=== PATIENT | female | born 1980 | race Caucasian/White ===

== ENCOUNTER 2017-09-06 16:04 | Emergency (ER) | payer BC ==
--- NOTE | 2017-09-06 16:42 | EDM.PDOC ---
ED HPI GENERAL MEDICAL PROBLEM - General Chief Complaint: Abdominal Pain Stated Complaint: LOWER LT ABDOMINAL PAIN Time Seen by Provider: 09/06/17 16:41 - History of Present Illness INITIAL COMMENTS - FREE TEXT/NARRATIVE: 37-year-old female presents emergency room with abdominal pain. This pain started yesterday in the left lower quadrant and has remained in the left lower quadrant pain has progressively gotten worse last night it wasn't too bad today it is much worse exquisitely tender. She thought she may be getting constipated tried mag citrate she had a large BM this did not improve the pain. Her past abdominal surgical history significant only for laparoscopic cholecystectomy. She really has not had any fevers no nausea or vomiting. Treatments COLLEGE TUTOR: Reports: Other (see below) Other Treatments COLLEGE TUTOR: mag citrate Left Lower Abdomen Pain Score (Numeric/FACES): 8 - Related Data Allergies Allergy/AdvReac Type Severity Reaction Status Date / Time No Known Allergies Allergy Verified 09/06/17 16:34 Home Meds: Home Meds Ciprofloxacin HCl [Cipro] 500 mg PO Q12H #14 tablet 09/06/17 [Rx] DULoxetine HCl [Cymbalta] 90 mg PO DAILY 09/06/17 [History] buPROPion HCl [Wellbutrin Xl] 0 mg PO DAILY 09/06/17 [History] metroNIDAZOLE [Flagyl] 500 mg PO Q8H #21 tab 09/06/17 [Rx] Past Medical History Psychiatric History: Reports: Anxiety, Depression - Past Surgical History GI Surgical History: Reports: Cholecystectomy Social & Family History - Tobacco Use Smoking Status *Q: Never Smoker - Caffeine Use Caffeine Use: Reports: Coffee, Tea - Recreational Drug Use Recreational Drug Use: No ED ROS GENERAL - Review of Systems Review Of Systems: See Below Constitutional: Reports: No Symptoms HEENT: Reports: No Symptoms Respiratory: Reports: No Symptoms Cardiovascular: Reports: No Symptoms, Palpitations GI/Abdominal: Reports: Abdominal Pain, Constipation. Denies: Diarrhea, Nausea, Vomiting : Reports: No Symptoms Musculoskeletal: Reports: No Symptoms Skin: Reports: No Symptoms Neurological: Reports: No Symptoms ED EXAM, GI/ABD - Physical Exam Exam: See Below Exam Limited By: No Limitations General Appearance: Alert, No Apparent Distress Head: Atraumatic, Normocephalic Neck: Normal Inspection, Supple, Non-Tender, Full Range of Motion Respiratory/Chest: No Respiratory Distress, Lungs Clear, Normal Breath Sounds Cardiovascular: Regular Rate, Rhythm, No Edema, No Murmur GI/Abdominal Exam: Normal Bowel Sounds, Soft, Other (Patient is significant left lower quadrant discomfort with palpation little higher than I would expect for ovarian pain no rigidity rebound or guarding noted) Back Exam: Normal Inspection. No: CVA Tenderness (L), CVA Tenderness (R) Extremities: Normal Inspection, No Pedal Edema Neurological: Alert, Oriented, Normal Cognition Psychiatric: Normal Affect, Normal Mood Skin Exam: Warm, Dry, Intact Lymphatic: No Adenopathy Course - Vital Signs Last Recorded V/S: Last Vital Signs Temp 36.7 C 09/06/17 16:29 Pulse 104 H 09/06/17 16:29 Resp 20 09/06/17 16:29 BP 133/77 09/06/17 16:29 Pulse Ox 100 09/06/17 16:29 - Orders/Labs/Meds Orders: Active Orders 24 hr Category Date Time Status Abdomen 2V AP Flat Upright [CR] Stat Exams 09/06/17 17:04 Taken Abdomen Pelvis w Cont [CT] Stat Exams 09/06/17 18:49 Taken Lactated Ringers [Ringers, Lactated] 1,000 ml Med 09/06/17 17:15 Active IV ASDIRECTED Medication Orders Lactated Ringer's (Ringers, Lactated) 1,000 mls @ 150 mls/hr IV ASDIRECTED ADRY Last Admin: 09/06/17 19:07 Dose: 150 mls/hr Labs: Laboratory Tests 09/06/17 09/06/17 09/06/17 Range/Units 17:01 17:17 17:32 WBC 13.54 H (3.98-10.04) K/mm3 RBC 3.90 L (3.98-5.22) M/mm3 Hgb 12.2 (11.2-15.7) gm/L Hct 37.1 (34.1-44.9) % MCV 95.1 H (79.4-94.8) fl MCH 31.3 (25.6-32.2) pg MCHC 32.9 (32.2-35.5) g/dl RDW Std Deviation 44.8 (36.4-46.3) fL Plt Count 196 (182-369) K/mm3 MPV 10.6 (9.4-12.3) fl Neutrophils % (Manual) 82 H (40-60) % Band Neutrophils % 0 (0-10) % Lymphocytes % (Manual) 18 L (20-40) % Atypical Lymphs % 0 % Monocytes % (Manual) 0 L (2-10) % Eosinophils % (Manual) 0 L (0.7-5.8) % Basophils % (Manual) 0 L (0.1-1.2) Platelet Estimate Adequate RBC Morph Comment Normal Sodium 139 (136-145) mEq/L Potassium 3.5 (3.5-5.1) mEq/L Chloride 104 (98-107) mEq/L Carbon Dioxide 26 (21-32) mEq/L Anion Gap 12.5 (5-15) BUN 12 (7-18) mg/dL Creatinine 0.7 (0.55-1.02) mg/dL Est Cr Clr Drug Dosing 108.85 mL/min Estimated GFR (MDRD) > 60 (>60) mL/min BUN/Creatinine Ratio 17.1 (14-18) Glucose 107 H (74-106) mg/dL Calcium 8.6 (8.5-10.1) mg/dL Total Bilirubin 0.8 (0.2-1.0) mg/dL AST 9 L (15-37) U/L ALT 20 (14-59) U/L Alkaline Phosphatase 58 (46-116) U/L Total Protein 7.4 (6.4-8.2) g/dl Albumin 3.6 (3.4-5.0) g/dl Globulin 3.8 gm/dL Albumin/Globulin Ratio 1.0 (1-2) Urine Color (Yellow) Urine Appearance (Clear) Urine pH (5.0-8.0) Ur Specific [place] (1.005-1.030) Urine Protein (Negative) Urine Glucose (UA) (Negative) Urine Ketones (Negative) Urine Occult Blood (Negative) Urine Nitrite (Negative) Urine Bilirubin (Negative) Urine Urobilinogen (0.2-1.0) Ur Leukocyte Esterase (Negative) Urine RBC (0-5) /hpf Urine WBC (0-5) /hpf Ur Epithelial Cells (0-5) /hpf Urine Bacteria (FEW) /hpf Urine Mucus (FEW) /hpf Urine HCG, Qual Negative (NEGATIVE) 09/06/17 Range/Units 17:32 WBC (3.98-10.04) K/mm3 RBC (3.98-5.22) M/mm3 Hgb (11.2-15.7) gm/L Hct (34.1-44.9) % MCV (79.4-94.8) fl MCH (25.6-32.2) pg MCHC (32.2-35.5) g/dl RDW Std Deviation (36.4-46.3) fL Plt Count (182-369) K/mm3 MPV (9.4-12.3) fl Neutrophils % (Manual) (40-60) % Band Neutrophils % (0-10) % Lymphocytes % (Manual) (20-40) % Atypical Lymphs % % Monocytes % (Manual) (2-10) % Eosinophils % (Manual) (0.7-5.8) % Basophils % (Manual) (0.1-1.2) Platelet Estimate RBC Morph Comment Sodium (136-145) mEq/L Potassium (3.5-5.1) mEq/L Chloride (98-107) mEq/L Carbon Dioxide (21-32) mEq/L Anion Gap (5-15) BUN (7-18) mg/dL Creatinine (0.55-1.02) mg/dL Est Cr Clr Drug Dosing mL/min Estimated GFR (MDRD) (>60) mL/min BUN/Creatinine Ratio (14-18) Glucose (74-106) mg/dL Calcium (8.5-10.1) mg/dL Total Bilirubin (0.2-1.0) mg/dL AST (15-37) U/L ALT (14-59) U/L Alkaline Phosphatase (46-116) U/L Total Protein (6.4-8.2) g/dl Albumin (3.4-5.0) g/dl Globulin gm/dL Albumin/Globulin Ratio (1-2) Urine Color Yellow (Yellow) Urine Appearance Clear (Clear) Urine pH 7.5 (5.0-8.0) Ur Specific [place] 1.020 (1.005-1.030) Urine Protein Negative (Negative) Urine Glucose (UA) Negative (Negative) Urine Ketones Negative (Negative) Urine Occult Blood Negative (Negative) Urine Nitrite Negative (Negative) Urine Bilirubin Negative (Negative) Urine Urobilinogen 0.2 (0.2-1.0) Ur Leukocyte Esterase Negative (Negative) Urine RBC Not seen (0-5) /hpf Urine WBC 0-5 (0-5) /hpf Ur Epithelial Cells 0-5 (0-5) /hpf Urine Bacteria Not seen (FEW) /hpf Urine Mucus Not seen (FEW) /hpf Urine HCG, Qual (NEGATIVE) Meds: Medications Generic Name Dose Route Start Last Admin Trade Name Freq PRN Reason Stop Dose Admin Lactated Ringer's 1,000 mls @ 150 mls/hr 09/06/17 17:15 09/06/17 19:07 Ringers, Lactated IV 150 mls/hr ASDIRECTED ADRY Administration Discontinued Medications Generic Name Dose Route Start Last Admin Trade Name Freq PRN Reason Stop Dose Admin Diatrizoate Meglum/Diatrizoate Sod 90 ml 09/06/17 20:08 Gastrografin 37% PO 09/06/17 20:09 ONETIME ONE Fentanyl 50 mcg 09/06/17 17:02 09/06/17 17:16 Sublimaze IVPUSH 09/06/17 17:03 50 mcg ONETIME ONE Administration Hydromorphone HCl 0.5 mg 09/06/17 18:53 09/06/17 19:01 Dilaudid IVPUSH 09/06/17 18:54 0.5 mg ONETIME ONE Administration Lactated Ringer's 1,000 mls @ 999 mls/hr 09/06/17 17:02 09/06/17 17:33 Ringers, Lactated IV 09/06/17 18:02 999 mls/hr .BOLUS ONE Administration Iopamidol 125 ml 09/06/17 20:08 09/06/17 20:31 Isovue-300 (61%) IVPUSH 09/06/17 20:09 125 ml ONETIME ONE Administration Levofloxacin 500 mg 09/06/17 21:13 Levaquin PO 09/06/17 21:14 ONETIME ONE Metronidazole 500 mg 09/06/17 21:13 Flagyl PO 09/06/17 21:14 ONETIME ONE Sodium Chloride 10 ml 09/06/17 20:08 09/06/17 20:31 Saline Flush FLUSH 09/06/17 20:09 10 ml ONETIME ONE Administration - Re-Assessments/Exams Free Text/Narrative Re-Assessment/Exam: 09/06/17 20:35 Labs were basically unrevealing her abdominal pain has persisted. Discussed the pros and cons of further imaging with the patient in given the possibility of diverticulitis though prior history we decided to go ahead and check a CT with IV and oral contrast. Plain films were checked which were basically unrevealing. 09/06/17 21:20 CT confirms a diverticulitis just proximal to the sigmoid colon. Patient will be given a dose of Flagyl 500 mg by mouth and Levaquin 500 mg by mouth now she' ll start Cipro and Flagyl in the morning from prescriptions that she'll get at the pharmacy she is given 20 [place] from the machine in the waiting room. Departure - Departure Time of Disposition: 21:21 Disposition: Home, Self-Care 01 Clinical Impression: Diverticulitis - Discharge Information Prescriptions: Ciprofloxacin HCl [Cipro] 500 mg PO Q12H #14 tablet metroNIDAZOLE [Flagyl] 500 mg PO Q8H #21 tab Referrals: Candice Alatorre, [employer]IC [Primary Care Provider] - Forms: ED Department Discharge Additional Instructions: Return to emergency room with any questions problems worsening symptoms. You have been given your first dose of oral antibiotics here in the emergency room starting tomorrow morning he'll take Cipro 500 mg twice daily and Flagyl 500 mg every 8 hours 3 times daily. While taking the antibiotics decrease your Cymbalta to every other evening From the machine in the waiting room your given pain medication, this is [place], or hydrocodone. Take one or 2 every 6 hours as needed for discomfort. If using this medication on a regular basis it can cause constipation so take a good stool softener with it. Follow-up with your regular physician in 3 or 4 days. - My Orders Last 24 Hours: My Active Orders 09/06/17 17:04 Abdomen 2V AP Flat Upright [CR] Stat 09/06/17 17:15 Lactated Ringers [Ringers, Lactated] 1,000 ml IV ASDIRECTED 09/06/17 18:49 Abdomen Pelvis w Cont [CT] Stat - Assessment/Plan Last 24 Hours: My Active Orders 09/06/17 17:04 Abdomen 2V AP Flat Upright [CR] Stat 09/06/17 17:15 Lactated Ringers [Ringers, Lactated] 1,000 ml IV ASDIRECTED 03/11/18 18:49 Abdomen Pelvis w Cont [CT] Stat
[2017-09-06] MEDS ORDERED: Lactated Ringers 1,000 ML IV ONE (17:02)
[2017-09-06] MEDS ORDERED: fentaNYL 100 MCG/2 ML SDV IVPUSH ONE (17:02)
[2017-09-06] MEDS ORDERED: Lactated Ringers 1,000 ML IV SCH (17:15)
[2017-09-06] MEDS ORDERED: HYDROmorphone 0.5 MG/0.5 ML SYRINGE IVPUSH ONE (18:53)
[2017-09-06] MEDS ORDERED: Iopamidol 612 MG/ML 150 ML Bottle IVPUSH ONE (20:08)
[2017-09-06] MEDS ORDERED: Diatrizoate Meglumine/Diatrizoate Sodium 37% 120 ML Bottle PO ONE (20:08)
[2017-09-06] MEDS ORDERED: Sodium Chloride 0.9% 10 ML Syringe FLUSH ONE (20:08)
[2017-09-06] MEDS ORDERED: Levofloxacin 500 MG Tab PO ONE (21:13)
[2017-09-06] MEDS ORDERED: metroNIDAZOLE 500 MG Tab PO ONE (21:13)
--- NOTE | 2017-09-07 07:57 | CT ---
CT abdomen and pelvis Technique: Multiple axial images were obtained from above the dome of the diaphragm inferiorly through the pubic symphysis. Intravenous and oral contrast was utilized. Delayed images were also obtained through the bladder. Comparison: No prior CT exam is available. Findings: Mild inflammatory change is identified near the junction of the descending and sigmoid colon. Diverticulosis is seen in this area and findings are felt compatible with mild diverticulitis. No focal fluid collections are seen to indicate an abscess at this time. Small amount of fluid is seen within the cul-de-sac which is most likely reactive fluid or physiologic fluid. Visualized lung bases show nothing acute. Liver contains no focal abnormality. Spleen appears within normal limits. Adrenal glands show no nodule. Surgical clips are seen from prior cholecystectomy. Cyst is noted within the mid to upper right kidney measuring about 1.3 cm in size. Kidneys otherwise appear within normal limits. Pancreas appears normal. Aorta shows no aneurysmal dilatation. No retroperitoneal adenopathy or mesenteric abnormalities are seen. Appendix is seen which appears normal. No pelvic mass or adenopathy. Delayed imaging show contrast within the distal ureters and within the bladder. Bone window settings were reviewed which show disc space narrowing at L5-S1 with vacuum phenomenon. Posterior spurring also noted at L5-S1. Impression: 1. Findings compatible with diverticulitis at the junction of the descending and sigmoid colon. 2. Small amount of free fluid within the pelvis most likely reactive or due to physiologic fluid. Diagnostic code #3 I agree with preliminary report from [facility], finalized at 09/06/17, 10:03 PM Central Time
--- NOTE | 2017-09-07 07:58 | CR ---
Abdomen: Supine and upright views of the abdomen were obtained. Comparison: No prior abdominal x-ray. Surgical clips are identified from prior cholecystectomy. Calcifications are identified within the pelvis which are compatible with phleboliths. No free air is seen. Bowel gas pattern is within normal limits. Incidental sclerosis is noted within the pubic symphysis. Impression: 1. Incidental findings. Nothing acute is identified. Diagnostic code #2
== END 2017-09-06 21:46 | disposition home or self-care (01) ==
LOC: JD.ED 16:04
DX: K57.32 Diverticulitis of large intestine without perforation or abscess without bleeding (principal); F32.9 Major depressive disorder, single episode, unspecified; Z79.899 Other long term (current) drug therapy
CPT/HCPCS: 36415; 74019; 74177; 80053; 81001; 81025; 85025; 96361; 96374; 96375; 99285; A9270; J1170; J3010; J7050; J7120; Q9963; Q9967; 99284